=== PATIENT | male | born 1985 | race Caucasian/White ===

== ENCOUNTER 2022-02-28 16:38 | Outpatient (CLI) | payer OTHER, SELFPAY ==
[2022-02-28 13:26] LABS: Cholesterol* 163 mg/dL (90-199)
[2022-02-28 13:27] LABS: HDL Cholesterol* 45 mg/dL (>=40); LDL Cholesterol Calculated 97 mg/dL (<100); Triglycerides* 104 mg/dL (40-149)
[2022-02-28 22:43] LABS: Glucose* 112 mg/dL (60-115)
== END 2022-02-28 16:39 | disposition home or self-care (01) ==
PROVIDERS: PCP Emergency Medicine; Visit Provider Emergency Medicine
DX: Z13.1 Encounter for screening for diabetes mellitus (principal); Z13.6 Encounter for screening for cardiovascular disorders
CPT/HCPCS: 80061; 82947

== ENCOUNTER 2022-09-25 14:18 | Outpatient (CLI) | payer OTHER, SELFPAY | END 2022-09-25 14:19 | disposition home or self-care (01) | LOC: LKVREF 14:19 | PROVIDERS: PCP Emergency Medicine; Visit Provider Emergency Medicine | DX: E66.9 Obesity, unspecified (principal); R73.01 Impaired fasting glucose; E11.9 Type 2 diabetes mellitus without complications; Z13.6 Encounter for screening for cardiovascular disorders; Z13.1 Encounter for screening for diabetes mellitus | CPT/HCPCS: 80076 ==

== ENCOUNTER 2022-10-23 08:23 | Outpatient (CLI) | payer OTHER, SELFPAY | END 2022-10-23 08:24 | disposition home or self-care (01) | PROVIDERS: PCP Emergency Medicine; Visit Provider Emergency Medicine | DX: E66.9 Obesity, unspecified (principal); R73.01 Impaired fasting glucose; E11.9 Type 2 diabetes mellitus without complications; Z13.6 Encounter for screening for cardiovascular disorders; Z13.1 Encounter for screening for diabetes mellitus | CPT/HCPCS: 80061; 82043; 82570; 84443 ==

== ENCOUNTER 2022-12-16 18:40 | Outpatient (CLI) | payer OTHER, SELFPAY | END 2022-12-16 18:41 | disposition home or self-care (01) | LOC: LKVREF 18:40 | PROVIDERS: PCP Emergency Medicine; Visit Provider Emergency Medicine | DX: E11.9 Type 2 diabetes mellitus without complications (principal); E66.9 Obesity, unspecified; Z71.3 Dietary counseling and surveillance | CPT/HCPCS: 82565 ==

== ENCOUNTER 2023-05-21 09:35 | Outpatient (CLI) | payer OTHER, SELFPAY ==
--- OUTSIDE RECORDS SUMMARY | 2023-05-21 09:38 | XMS_ITS | Continuity of Care Document ---
Author Name Unknown Organization [facility] Address [address] [place] [address] Phone Care Team Providers Care Automobile Upholstery Trim Installer Name Role Phone Yves Delgado MD Unavailable Unavailable Allergies, Adverse Reactions, Alerts Substance Reaction Status Criticality No Known Allergies Active No Inform ation Medications Medication Instructions Dosage Effective Dates (start - stop) Status Comments GABAPENTIN (unknown strength) Not Available - Active Procedures Procedure Date Office/Outpatient Visit,[facility] 2021 Advance Directives Directive Yes / No Effective Date File Name No Information Encounters Encounter Description Practice Location Reason(s) For Visit Diagnoses Date Provider Providers Copied on Encounter Office/Outpat ient Visit,[facility], [facility], [address], [place], [place], [id number], [place] tel:[phone] [facility] No Information Danny Marinelli. [facility], [address] [place] [address], [facility] [address], [place], [place], [id number], [place]. tel:[phone] Referring Provider: Rustam Mckeon, [facility] [address] [place], [address]. tel:[phone] Family History Family Member Type Diagnosis Age At Onset No Information Payers Payer name Insurance type Covered republican ID Wilfred villalpando(s) [facility] [id number] Social History Type Description Quantity Date Captured Comments Alcohol Use Details Unknown Caffeine Use Details Unknown Tobacco Use Status Current non-smoker Smoking Status Never smoker Non-Smoking Tobacco Use Details : No Details Available : No Details Available Sex Male Vital Signs Date / Time: Height Weight BMI Pulse Rate Blood Pressure Temperature Respiratory Rate Body Surface Area Head Circumference Head Circ. Percentile Wt./Tk. Percentile BMI percentile Pulse Ox Inhaled Ox 3:31 PM 74.00 in 135.171 kg (298.00 lbs) 38.2 6 kg/m eter (2) Chief Complaint And Reason For Visit No Information Reason For Referral Reason For Referral No Information History Of Present Illness Encounter Date Complaint History Of Prese nt Illness No Information Functional Status Date Functional Assessmen t No Information Instructions Date Instruction Additional Infor mation No Information Assessments Type Assessment Date No Information Patient Care Teams Name Effective Dates (start - stop) Status Members No Information
== END 2023-05-21 09:36 | disposition home or self-care (01) ==
PROVIDERS: PCP Emergency Medicine; Visit Provider Emergency Medicine
DX: E78.5 Hyperlipidemia, unspecified (principal); E11.9 Type 2 diabetes mellitus without complications
CPT/HCPCS: 80053; 80061

== ENCOUNTER 2023-09-24 08:08 | Outpatient (CLI) | payer OTHER, SELFPAY | END 2023-09-24 08:09 | disposition home or self-care (01) | LOC: NFLDREF 09-25 06:15 | PROVIDERS: PCP Emergency Medicine; Referring Provider Emergency Medicine; Visit Provider Emergency Medicine | DX: E78.2 Mixed hyperlipidemia (principal) | CPT/HCPCS: 80061 ==

== ENCOUNTER 2024-04-06 08:24 | Outpatient (CLI) | payer OTHER, SELFPAY ==
--- OUTSIDE RECORDS SUMMARY | 2024-04-07 08:33 | XMS_ITS | Continuity of Care Document ---
Author Organization [facility] Address [address] [place] [address] Phone Care Team Providers Care Buffing Line Set Up Worker Name Role Phone Yves Delgado MD Unavailable Unavailable Allergies, Adverse Reactions, Alerts Substance Reaction Status Criticality No Known Allergies Active No Inform ation Medications Medication Instructions Dosage Effective Dates (start - stop) Status Comments GABAPENTIN (unknown strength) Not Available - Active Procedures Procedure Date Office/Outpatient Visit,[facility] 2021 Advance Directives Directive Yes / No Effective Date File Name No Information Encounters Encounter Description Practice Location Reason(s) For Visit Diagnoses Date Provider Providers Copied on Encounter Office/Outpat ient Visit,[facility], [facility], [address], [place], [place], [id number], [place] tel:[phone] [facility] No Information Danny Marinelli. [facility], [address], [facility] [address], [place], [place], [id number], [place]. tel:[phone] Referring Provider: Rustam Mckeon, [facility] [address] [place], [address]. tel:[phone] Family History Family Member Type Diagnosis Age At Onset No Information Payers Payer name Insurance type Covered constitution party ID Wilfred villalpando(s) [facility] [id number] Social History Type Description Quantity Date Captured [...]
--- OUTSIDE RECORDS SUMMARY | 2024-04-07 08:33 | XMS_ITS | Clinical Summary ---
Author Organization [employer] [facility] Address [place], [place] [address] Care Team Providers Care Youth Leader Name Role Phone Rustam Crabtree MD Primary Care Provider Allergies No known active allergies Medications Medication Sig Dispensed Refills Start Date End Date Status gabapentin (NEURONTIN) 300 mg capsuleIndications:Michelle mbar radiculopathy Take 1-2 Capsules (300-600 mg) by mouth 3 times daily. 180 Capsule 1 07/18/2021 Active diclofenac (VOLTAREN) 75 mg delayed-release tabletIndications:Lum bar radiculopathy Take 1 Tablet (75 mg) by mouth 2 times daily with meals. 60 Tablet 07/18/2021 Active Active Problems Problem Noted Date Diagnosed Date Obesity, unspecified 10/16/2017 Microscopic hematuria 10/24/2014 Immunizations Name Administration Dates Next Due DTP 04/13/1990, 8,03/25/1988, 988 DTaP 03/18/1995 HIB PRP-T (ActHIB,Hiberix) 07/27/1989 Hepatitis B (Peds) 12/29/2000,04/13/2000, 000 Influenza, Injectable, Mdck, Quadrivalent, W/preservative 03/28/2021 MMR 12/29/2000,03/17/1989 Oral Polio Vaccine 04/13/1990,03/25/1988, 988 Td (Age >=7 Years) 02/17/2000 Tdap 06/09/2011 Social History Tobacco Use Types Packs/Day Years Used Date Smoking Tobacco: Never Smokeless Tobacco: Never Alcohol Use Standard Drinks/Week Comments Yes 0 (1 standard drink = 0.6 oz pur e alcohol) rarely 1-2 weekly PHQ-2 Answer Date Recorded PHQ-2 TOTAL SCORE 2 02/14/2021 Social Connections Answer Date Recorded Frequency of Communication with Friends and Fami ly Not on file 07/18/2021 Financial Resource Strain Answer Date R ecorded Difficulty of Paying Living Expenses Not on file 07/18/2021 Difficulty of Paying Living Expenses Not on file 07/18/2021 Sex and Gender Information Value Date Recorded Sex Assigned at Not on file Gender Identity Not on file Sexual Orientation Not on file Obstetrics History Last Filed Vital Signs Vital Sign Reading Time Taken Comments Blood Pressure 110/78 08/29/2021 10:02 AM ASSISTANT STORE LEADER Pulse 81 08/29/2021 10:02 AM ASSISTANT STORE LEADER Temperature 36.2 ??C (97.2 ??F) 07/26/2021 6:57 AM CS T Respiratory Rate 14 08/29/2021 10:02 AM ASSISTANT STORE LEADER Oxygen Saturation 96% 08/29/2021 10:02 AM ASSISTANT STORE LEADER Inhaled Oxygen Concentration - - Weight 129.3 kg (285 lb) 08/29/2021 10:02 AM ASSISTANT STORE LEADER Height 188 cm (6' 2) 02/14/2021 10:29 AM CDT Body Mass Index 36.59 02/14/2021 10:29 AM CDT Plan of Treatment Health Maintenance Due Date Last Done Comments HIV for age 15-65 11/18/2002 Hepatitis C screening for ag e 18-79 11/18/2005 Tetanus booster 06/09/2021 06/09/2011, 02/17/2000 BMI (ht and wt on same day) for age 18+ 02/14/2022 02/14/2021 Depression screening for age 12+ 02/14/2022 02/14/2021, 02/14/2021 Lipids for age 35-44 11/18/2022 COVID-19 vaccine series ( season) 2024 05/17/2021, 10/11/2020 Influenza for age 9-49 03/06/2024 03/28/2021 Tdap Completed 06/09/2011 Pneumococcal series for age 6-64 Aged Out No longer eligible b ased on patient's age to complete this topic Care Teams Youth Leader Relationship Specialty [place] [address] [place] [address] PCP - General Family Practice 02/13/21
--- OUTSIDE RECORDS SUMMARY | 2024-04-07 08:33 | XMS_ITS | Referral Summary ---
Author Organization [facility] Address [address] [place] [address] Care Team Providers Care Assistant Manager/Embalmer Name Role Phone No Ref-Primary, Physician Primary Care Provider Allergies No known active allergies Medications Medication Sig Dispensed Refills Start Date End Date Status ondansetron (ZOFRAN ODT) 4 MG ODT tab Take 1 tablet (4 mg) by mouth every 8 hours as needed for nausea 10 tablet 10/25/2021 Active Social History Tobacco Use Types Packs/Day Years Used Date Smoking Tobacco: Passive Smo ke Exposure - Never Smoker Cigarettes Alcohol Use Standard Drinks/Week Comments Yes 0 (1 standard drink = 0.6 oz pur e alcohol) Adolescent Education Answer Date Record ed Getting School Help Needed Not on file 04/12 Sex and Gender Information Value Date Recorded Sex Assigned at Not on file Gender Identity Not on file Sexual Orientation Not on file Last Filed Vital Signs Vital Sign Reading Time Taken Comments Blood Pressure 114/65 10/25/2021 6:45 PM CDT Pulse 89 10/25/2021 6:45 PM CDT Temperature 37.9 ??C (100.3 ??F) 10/25/2021 2:59 PM C DT Respiratory Rate 18 10/25/2021 6:45 PM CDT Oxygen Saturation 96% 10/25/2021 6:45 PM CDT Inhaled Oxygen Concentration - - Weight 131.5 kg (290 lb) 10/25/2021 2:59 PM CDT Height 190.5 cm (6' 3) 10/25/2021 2:59 PM CDT Body Mass Index 36.25 10/25/2021 2:59 PM CDT Plan of Treatment Not on file Procedures Procedure Name Priority Date/Time Associated Diagnosis Comments COMPREHENSIVE METABOLIC PANEL STAT 10/25/2021 3:34 PM CDT from Last 3 Months or Most Recently Relevant to Health Maintenance Results * (ABNORMAL) Comprehensive metabolic panel (10/25/2021 3:34 PM CDT) Sodium 134 133 - 144 mmol/L 10/25/2021 4:08 PM CDT [facility] Potassium 3.5 3.4 - 5.3 mmol/L 10/25/2021 4:08 PM CDT [facility] Chloride 103 94 - 109 mmol/L 10/25/2021 4:08 PM CDT [facility] Carbon Dioxide (CO2) 25 20 - 32 mmol/L 10/25/2021 4:08 PM CDT [facility] Anion Gap 6 3 - 14 mmol/L 10/25/2021 4:08 PM CDT [facility] Urea Nitrogen 12 7 - 30 mg/dL 10/25/2021 4:08 PM CDT [facility] Creatinine 0.77 0.66 - 1.25 mg/dL 10/25/2021 4:08 PM CDT [facility] Calcium 9.1 8.5 - 10.1 mg/dL 10/25/2021 4:08 PM CDT [facility] Glucose 136(H) 70 - 99 mg/dL 10/25/2021 4:08 PM CDT [facility] Alkaline Phosphatase 61 40 - 150 U/L 10/25/2021 4:08 PM CDT [facility] AST 17 0 - 45 U/L 10/25/2021 4:08 PM CDT [facility] ALT 40 0 - 70 U/L 10/25/2021 4:08 PM CDT [facility] Protein Total 8.2 6.8 - 8.8 g/dL 10/25/2021 4:08 PM CDT [facility] Albumin 4.1 3.4 - 5.0 g/dL 10/25/2021 4:08 PM CDT [facility] Bilirubin Total 2.4(H) 0.2 - 1.3 mg/dL 10/25/2021 4:08 PM CDT [facility] GFR Estimate >90 >60 mL/min/1.7 3m2 10/25/2021 4:08 PM CDT [facility] Comment:Effective June 062020 eGFRcr in adults is calculated using the 2020 CKD-EPI creatinine equation which includes age and gender (Kathia et al., NEJM, DOI: 10.1056/IHJHxq4912069) Blood STRUCTURE OF RIGHT UPPER LIMB / Unknown Venipuncture / Unknown 10/25/2021 3:34 PM CDT 10/25/2021 3:37 PM CDT Nixon Dailey MD LAB - BLOOD ORD ERABLES [facility] Acute Care Lab [address] Lab (1st floor, no room number) [place] [address], [facility] [phone] from Last 3 Months or Most Recently Relevant to Health Maintenance Care Teams Assistant Manager/Embalmer Relationship Specialty Start Date End Date No Ref-Primary, Physician PCP - General 08/28/22
--- OUTSIDE RECORDS SUMMARY | 2024-04-07 08:33 | XMS_ITS | Clinical Summary ---
Author Organization [facility] Address [address] [place] [address] Care Team Providers Care Proof Technician Name Role Phone No Ref-Primary, Physician Primary [...] 10/25/2021 2:59 PM CDT Plan of Treatment Health Maintenance Due Date Last Done Comments ADVANCE CARE PLANNING 1987 ANNUAL REVIEW OF HM ORDERS 1987 YEARLY PREVENTIVE VISIT 1987 HIV SCREENING 11/18/2002 HEPATITIS C SCREENING 11/18/2005 PHQ-2 (once per calendar year) 2023 COVID-19 Vaccine (3 - season) 2024 05/17/2021, 10/11/2020 INFLUENZA VACCINE (#1) 2024 03/28/2021 GLUCOSE 10/25/2024 10/25/2021 DTAP/TDAP/TD IMMUNIZATION (8 - Td or Tdap) 02/21/2032 02/20/2022, 06/09/2011, 02/17/2000, Additional history exists HEPATITIS B IMMUNIZATION Completed 001, 04/13/2000, 02/17/2000 HPV IMMUNIZATION Aged Out No longer e ligible based on patient's age to complete this topic MENINGITIS IMMUNIZATION Aged Out No l onger eligible based on patient's age to complete this topic Pneumococcal Vaccine: Pediatrics (0 to 5 Years) and At-Risk Patients (6 to 64 Years) Aged Out No longer eligible based on patient's age to complete this topic RSV MONOCLONAL ANTIBODY Aged Out No l onger eligible based on patient's age to complete this topic Procedures Procedure Name Priority Date/Time Associated Diagnosis [...] includes age and gender (Kathia et al., NEJ, DOI: 10.1056/[id number]) Blood STRUCTURE OF RIGHT UPPER LIMB / Unknown Venipuncture / Unknown 10/25/2021 3:34 PM CDT 10/25/2021 3:37 PM CDT Nixon Dailey MD LAB - BLOOD ORD ERABLES [facility]AT[facility] Acute Care Lab [address] Lab (1st floor, no room number) [place] [address], [facility] [phone] from Last 3 Months or Most Recently Relevant to Health Maintenance Care Teams Proof Technician Relationship Specialty Start Date End Date No Ref-Primary, Physician PCP - General 08/28/22
--- OUTSIDE RECORDS SUMMARY | 2024-04-07 08:33 | XMS_ITS | Continuity of Care Document ---
Author Organization [facility] Address [address] [place] [address] Phone Care Team Providers Care Claims Associate Name Role Phone Will Greg BOBBY Unavailable Unavailabl e Medications Medication Instructions Dosage Effective Dates (start - stop) Status Comments Medrol (Derek) 4 mg tablets in a dose pack take by Oral route as directed on pack Not Available - Active Procedures Procedure Date Drug Urine Toxology With Chromatography DAST 15-30 MIN OFFICE/OUTPATIENT VISIT, [facility] Advance Directives Directive Yes / No Effective Date File Name No Information Encounters Encounter Description Practice Location Reason(s) For Visit Diagnoses Date Provider Providers Copied on Encounter [facility], [address] [place] [address], [id number] , [place] tel: [phone] [facility] No Information 2 Donny Garza. [address] [facility] [place], [place], [id number] , [place]. tel: [phone] [facility], [address] [place] [address] [place], [place], [id number] , [place] tel: [phone] [facility] [place] Other intervertebral disc degeneration, lumbar region 1 Samantha Syed. [address], [place], [id number] , [place]. tel: [phone] [facility], [address] [place], [id number] , [place] tel:[phone] [facility] [place] No Information 1 Samantha Syed. [address] [facility] [address], [place], [id number] , [place]. tel:[phone] Referring Provider: Greg Bray, [address] [facility] [place], [address] . tel:[phone] OFFICE/OUTPAT IENT VISIT, [facility], [address] [place] [address] [place], [id number] , [place] tel:[phone] [facility] [place] Low back pain (chief complaint) Chronic pain syndromeEncounter for screening for other disorderOther intervertebral disc degeneration, lumbar region 1 Samantha Syed. [address] [facility] [address], [place], [id number] , [place]. tel:[phone] Referring Provider: Greg Bray, [address] [facility] [place], [address] . tel:[phone] Family History Family Member Type Diagnosis Age At Onset Father Problem ruptured disc Payers Payer name Insurance type Covered alliance party ID Wilfred villalpando(s) [employer] CI [id number] Social History Type Description Quantity Date Captured Comments Sex Male Smoking Status No Information Chief Complaint And Reason For Visit No Information Reason For Referral Reason For Referral No Information Plan Of Treatment Date Type Action Status Goal PHQ-9. Due on du e Goal Medication Reconciliation. D ue on due Goal Weight. Due on d ue Goal Height. Due on d ue Goal Tobacco Use. Due on 021 due Goal Review Allergy List. Due on [...] Of Prese nt Illness Low back pain (comments) John is here for an initial consult and presents with low back pain without leg pain, initial onset 6-7 years ago, possible injury. He re-injured it about 6 weeks ago which has aggravated the pain and limits his activity level. Bending down and sitting aggravates the pain. Lying down supine relieves the pain. He sought complex care nurse practitioner with minimal relief. X-ray and MRI last fall at [facility] which showed spinal stenosis and herniated disc per pt report. Pt used to have radiculopathy s/s but now pain is mainly axialHe is self referred.Treatment [facility] - not helpful.metaxalone, ibuprofenPt goal: [facility] to take over pain management. Low back pain Severity level i s 8. Duration: chronic. It occurs persistently. Location of pain is lower back.The patient describes the pain as an ache and stabbing. Symptoms are aggravated by ascending stairs, bending, changing positions, descending stairs, lifting, running, sitting, standing, walking and housework. Symptoms are relieved by heat, ice, lying down, massage and chiropractic. Functional Status Date Functional Assessmen t No Information Instructions Date Instruction Additional Infor mation No Information Assessments Type Assessment Date No Information Patient Care Teams Name Effective Dates (start - stop) Status Members No Information
== END 2024-04-06 08:25 | disposition home or self-care (01) ==
LOC: NFLDREF 04-07 08:31
PROVIDERS: PCP Emergency Medicine; Referring Provider Emergency Medicine; Visit Provider Emergency Medicine
DX: E78.2 Mixed hyperlipidemia (principal); I10 Essential (primary) hypertension; E11.9 Type 2 diabetes mellitus without complications; E66.9 Obesity, unspecified; R73.01 Impaired fasting glucose; Z13.6 Encounter for screening for cardiovascular disorders; Z13.1 Encounter for screening for diabetes mellitus
CPT/HCPCS: 80048; 80061; 82043; 82570

== ENCOUNTER 2024-12-18 05:24 | Emergency (ER) | payer OTHER, SELFPAY ==
--- OUTSIDE RECORDS SUMMARY | 2021-08-22 11:07 | XMS_ITS | Continuity of Care Document ---
Author Organization [facility] Address [address] [facility] [place] [address] Phone Care Team Providers Care Fabric Cutter Name Role Phone Will Greg BOBBY Unavailable Unavailabl e Medications Medication Instructions Dosage Effective Dates (start - stop) Status Comments Medrol (Derek) 4 mg tablets in a dose pack take by Oral route as directed on pack Not Available - Active Procedures Procedure Date Drug Urine Toxology With Chromatography DAST 15-30 MIN OFFICE/OUTPATIENT VISIT, [facility] Advance Directives Directive Yes / No Effective Date File Name No Information Encounters Encounter Description Practice Location Reason(s) For Visit Diagnoses Date Provider Providers Copied on Encounter [facility], [address] [place] [address], [id number] , [place] tel: [phone] [facility] No Information 2 Donny Garza. [address] [facility] [place], [place], [id number] , [place]. tel: [phone] [facility], [address] [place] [address] [place], [place], [id number] , [place] tel: [phone] [facility] [place] Other intervertebral disc degeneration, lumbar region 1 Samantha Syed. [address], [place], [id number] , [place]. tel: [phone] [facility], [address] [place], [id number] , [place] tel:[phone] [facility] [place] No Information 1 Samantha Syed. [address] [facility] [address], [place], [id number] , [place]. tel:[phone] Referring Provider: Greg Bray, [address] [facility] [place], [address] . tel:[phone] OFFICE/OUTPAT IENT VISIT, [facility], [address] [place] [address] [place], [id number] , [place] tel:[phone] [facility] [place] Low back pain (chief complaint) Chronic pain syndromeEncounter for screening for other disorderOther intervertebral disc degeneration, lumbar region 1 Samantha Syed. [address] [facility] [address], [place], [id number] , [place]. tel:[phone] Referring Provider: Greg Bray, [address] [facility] [place], [address] . tel:[phone] Family History Family Member Type Diagnosis Age At Onset Father Problem ruptured disc Payers Payer name Insurance type Covered green party ID Wilfred villalpando(s) [employer] CI [id number] Social History Type Description Quantity Date Captured Comments Sex Male Smoking Status No Information Chief Complaint And Reason For Visit No Information Reason For Referral Reason For Referral No Information Plan Of Treatment Date Type Action Status Goal Height. Due on d ue Goal Medication Reconciliation. D ue on due Goal Tobacco Use. Due on 021 due Goal Weight. Due on d ue Goal Update Social History. Due o n due Goal PHQ-9. Due on du e Goal Review Allergy List. Due on due Goal Update Social History. Due o n due Goal Weight. Due on d ue Goal Height. Due on d ue Goal Tobacco Use. Due on due Goal PHQ-9. Due on du e Goal Medication Reconciliation. D ue on due Goal Review Allergy List. Due on due Goal PHQ-9. Due on du e Goal Medication Reconciliation. D ue on due Goal Weight. Due on d ue Goal Height. Due on d ue Goal Tobacco Use. Due on due Goal Review Allergy List. Due on due Goal Update Social History. Due o n due History Of Present Illness Encounter Date Complaint History Of Prese nt Illness Low back pain Severity level i s 8. Duration: chronic. It occurs persistently. Location of pain is lower back.The patient describes the pain as an ache and stabbing. Symptoms are aggravated by ascending stairs, bending, changing positions, descending stairs, lifting, running, sitting, standing, walking and housework. Symptoms are relieved by heat, ice, lying down, massage and chiropractic. Low back pain (comments) John is here for an initial consult and presents with low back pain without leg pain, initial onset 6-7 years ago, possible injury. He re-injured it about 6 weeks ago which has aggravated the pain and limits his activity level. Bending down and sitting aggravates the pain. Lying down supine relieves the pain. He sought veterinarian laboratory animal care with minimal relief. X-ray and MRI last fall at [facility] which showed spinal stenosis and herniated disc per pt report. Pt used to have radiculopathy s/s but now pain is mainly axialHe is self referred.[facility] helpful.metaxalone, ibuprofenPt goal: [facility] to take over pain management. Functional Status Date Functional Assessmen t No Information Instructions Date Instruction Additional Infor mation No Information Assessments Type Assessment Date No Information Patient Care Teams Name Effective Dates (start - stop) Status Members No Information
--- OUTSIDE RECORDS SUMMARY | 2021-08-22 11:07 | XMS_ITS | Continuity of Care Document ---
Author Organization [facility] Address [address] [facility] [place] [address] Phone Care Team Providers Care Lighting Specialist Name Role Phone Will Greg BOBBY Unavailable Unavailabl e Medications Medication Instructions Dosage Effective Dates (start - stop) Status Comments Medrol (Derek) 4 mg tablets in a dose pack take by Oral route as directed on pack Not Available - Active Procedures Procedure Date Drug Urine Toxology With Chromatography DAST 15-30 MIN OFFICE/OUTPATIENT VISIT, [facility] Advance Directives Directive Yes / No Effective Date File Name No Information Encounters Encounter Description Practice Location Reason(s) For Visit Diagnoses Date Provider Providers Copied on Encounter [facility], [address] [place] [address], [id number] , [place] tel: [phone] [facility] No Information 2 Donny Garza. [address] [facility] [place], [place], [id number] , [place]. tel: [phone] [facility], [address] [place] [address] [place], [place], [id number] , [place] tel: [phone] [facility] [place] Other intervertebral disc degeneration, lumbar region 1 Samantha Syed. [address] [facility] [address], [place], [id number] , [place]. tel: [phone] [facility], [address] [place], [id number] , [place] tel:[phone] [facility] [place] No Information 1 Samantha Syed. [address] [facility] [address], [place], [id number] , [place]. tel:[phone] Referring Provider: Greg Bray, [address] [facility] [place], [address] . tel:[phone] OFFICE/OUTPAT IENT VISIT, [facility], [address] [place] [address] [place], [id number] , [place] tel:[phone] [facility] [place] Low back pain (chief complaint) Chronic pain syndromeEncounter for screening for other disorderOther intervertebral disc degeneration, lumbar region 1 Samantha Syed. [address] [facility] [address], [place], [id number] , [place]. tel:[phone] Referring Provider: Greg Bray, [address] [facility] [place], [address] . tel:[phone] Family History Family Member Type Diagnosis Age At Onset Father Problem ruptured disc Payers Payer name Insurance type Covered constitution party ID Wilfred villalpando(s) [employer] CI [id number] Social History Type Description Quantity Date Captured Comments Sex Male Smoking Status No Information Chief Complaint And Reason For Visit No Information Reason For Referral Reason For Referral No Information Plan Of Treatment Date Type Action Status Goal Review Allergy List. Due on due Goal PHQ-9. Due on du e Goal Update Social History. Due o n due Goal Weight. Due on d ue Goal Tobacco Use. Due on 021 due Goal Medication Reconciliation. D ue on due Goal Height. Due on d ue Goal Review Allergy List. Due on due Goal Medication Reconciliation. D ue on due Goal PHQ-9. Due on du e Goal Tobacco Use. Due on due Goal Height. Due on d ue Goal Weight. Due on d ue Goal Update Social History. Due o n due Goal Update Social History. Due o n due Goal Review Allergy List. Due on due Goal Tobacco Use. Due on due Goal Height. Due on d ue Goal Weight. Due on d ue Goal Medication Reconciliation. D ue on due Goal PHQ-9. Due on du e History Of Present Illness Encounter Date Complaint [...] down supine relieves the pain. He sought family day care worker with minimal relief. X-ray and MRI last fall at [facility] which showed spinal stenosis and herniated disc per pt report. Pt used to have radiculopathy s/s but now pain is mainly axialHe is self referred.[facility].metaxalone, ibuprofenPt goal: [facility] to take over pain management. Functional Status Date Functional Assessmen t No Information Instructions Date Instruction Additional Infor mation No Information Assessments Type Assessment Date No Information Patient Care Teams Name Effective Dates (start - stop) Status Members No Information
[2024-12-18] VITALS (20 sets, daily range): BP systolic 99–139; BP diastolic 54–94; PULSE 60–89; RESP 12–20; TEMP 36.1; O2SAT 92–97; BMI 33.4
--- OUTSIDE RECORDS SUMMARY | 2024-12-18 05:27 | XMS_ITS | Clinical Summary ---
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 Gender Identity Not on file Sexual Orientation Not on file Last Filed Vital Signs Vital Sign Reading Time Taken Comments Blood Pressure 114/65 10/25/2021 6:45 PM CDT Pulse 89 10/25/2021 6:45 PM CDT Temperature 37.9 C (100.3 F) 10/25/2021 2:59 PM CDT Respiratory Rate 18 10/25/2021 6:45 PM CDT [...] OF HM ORDERS 1987 YEARLY PREVENTIVE VISIT 11/18/1990 HIV SCREENING 11/18/2002 HEPATITIS C SCREENING 11/18/2005 COVID-19 VACCINE ( season) 2024 05/17/2021, 10/11/2020 PHQ-2 (once per calendar year) 2024 DIABETES SCREENING 10/25/2024 10/25/2021 INFLUENZA VACCINE (Season Ended) 2025 03/28/2021 DTAP/TDAP/TD VACCINE (8 - Td or Tdap) 02/21/2032 02/20/2022, 06/09/2011, 02/17/2000, Additional history exists ZOSTER VACCINE (1 of 2) 11/18/2037 HEPATITIS B VACCINE Completed 12/29/2000, 04/13/2000, 02/17/2000 HPV VACCINE Aged Out No longer eligi ble based on patient's age to complete this topic MENINGITIS VACCINE Aged Out No longer eligible based on patient's age to complete this topic PNEUMOCOCCAL VACCINE: PEDIATRICS (0 to 5 YEARS) AND AT-RISK PATIENTS (6 to 49 YEARS) Aged Out No longer eligible based on [...] - 70 U/L 10/25/2021 4:08 PM CDT LABORATORY Protein Total 8.2 6.8 - 8.8 g/dL 10/25/2021 4:08 PM CDT RH LABORATORY Albumin 4.1 3.4 - 5.0 g/dL 10/25/2021 4:08 PM CDT LABORATORY Bilirubin Total 2.4(H) 0.2 - 1.3 mg/dL 10/25/2021 4:08 PM CDT [facility] LABORATORY GFR Estimate >90 >60 mL/min/1.7 3m2 10/25/2021 4:08 PM CDT LABORATORY Comment:Effective June 062020 eGFRcr in adults is calculated using the 2020 CKD-EPI creatinine equation which includes age and gender (Kathia et al., NEJM, DOI: 10.1056/ELETar9472330) Blood STRUCTURE OF RIGHT UPPER LIMB / Unknown Venipuncture / Unknown 10/25/2021 3:34 PM CDT 10/25/2021 3:37 PM CDT us Nixon Dailey MD LAB - BLOOD ORDERABLES Final Result LABORATORY [facility] [address] Lab (1st floor, no room number) [place] [address], [place] [phone] from Last 3 Months or Most Recently Relevant to Health Maintenance Insurance Back& Care Teams Beater Engineer Helper Relationship Specialty Start Date End Date No Ref-Primary, Physician PCP - General 08/28/22
--- OUTSIDE RECORDS SUMMARY | 2024-12-18 05:27 | XMS_ITS | Clinical Summary ---
Author Organization [facility] Address [address] [place] [address] Care Team Providers Care Vp Scientific Affairs Name Role Phone Pcp, No Primary Care Provider Unavailabl e Allergies No known active allergies Medications gabapentin (NEURONTIN) 300 mg capsuleIndications :Lumbar radiculopathy Take 1-2 Capsules (300-600 mg) by mouth 3 times daily. 180 Capsule 1 2 Active diclofenac (VOLTAREN) 75 mg delayed-release tabletIndications: Lumbar radiculopathy Take 1 Tablet (75 mg) by mouth 2 times daily with meals. 60 Tablet 2 Active Active Problems Problem Noted Date Diagnosed Date Obesity, unspecified 10/16/2017 Microscopic hematuria 10/24/2014 Immunizations Immunization Administration Dates Next Due DTP 04/13/1990, 8,03/25/1988,1987 DTaP 03/18/1995 HIB PRP-T (ActHIB,Hiberix) 07/27/1989 Hepatitis [...] at Not on file Legal Sex Male 9:57 AM CDT Gender Identity Not on file Sexual Orientation Not on file Obstetrics History Last Filed Vital Signs Vital Sign Reading Time Taken Comments Blood Pressure 110/78 08/29/2021 10:02 AM [facility] [employer] [employer] Pulse 81 08/29/2021 10:02 AM [facility] [employer] Temperature 36.2 C (97.2 F) 07/26/2021 6:57 AM [facility] [employer] Respiratory Rate 14 08/29/2021 10:02 AM [facility] [employer] Oxygen Saturation 96% 08/29/2021 10:02 AM [facility] Inhaled Oxygen Concentration - - Weight 129.3 kg (285 lb) 08/29/2021 10:02 AM [facility] [employer] Height 188 cm (6' 2) 02/14/2021 10:29 [...] series ( season) 2024 05/17/2021, 10/11/2020 Influenza Vaccine (Season Ended) 2025 03/28/2021 Hepatitis B series for 19+ Completed 12/29, 04/13/2000, 02/17/2000 Tdap Completed 06/09/2011 Pneumococcal series for age 6-49 Aged Out No longer eligible b ased on patient's age to complete this topic Insurance [place] TONG [id number] Care Teams Vp Scientific Affairs Relationship Specialty Start Date End Date Pcp, No . PCP - General 07/15/24
--- NOTE | 2024-12-18 05:40 | ED.GENADULT ---
HPI - General Adult General Chief complaint: Chest Pain Stated complaint: chest pain Time Seen by Provider: 12/18/24 05:40 History of Present Illness HPI narrative: starting yesterday tightness in center of chest , pain does not radiate, no SOB or nausea, patient denies cardiac hx. patient reports recent monjaro injection 2 days ago and since the injection feeling off, some numbness in arms and this tight feeling in his chest. 39-year-old man presenting to the emergency department with concern chest pain/tightness. Sounds like has been having sensation of tightness for about 12 hours at least. He gestures to his mid chest. Is not feeling shortness of breath. There is no pleuritic nature to this. Did have a Brilliant RO injection 2 days ago in not been feeling right since. Feels this similar sensation in bilateral shoulders and that is arms just feel off. 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 No nausea. Related Data Previous Rx's ?Medication ?Instructions ?Recorded metformin 500 mg tablet,extended 500 mg PO QDAY #90 tabs 04/06/24 release 24 hr rosuvastatin 10 mg tablet 10 mg PO QDAY #90 tabs 10/10/24 fluoxetine 20 mg capsule 40 mg (2 x 20 mg) PO QDAY #180 caps 10/17/24 tirzepatide 10 mg/0.5 mL 10 mg (0.5 mL) subcut QWEEK #2 mL 12/12/24 subcutaneous pen injector Allergies Allergy/AdvReac Type Severity Reaction Status Date / Time ragweed pollen Allergy Intermediate Nasal Verified 08/09/24 08:49 Discharge Review of Systems Status of ROS: Reports: 6 or more systems reviewed and unremarkable except as noted in History and below [facility] Medical History Depression ?F32.A - Depression, unspecified (ICD-10) Insomnia ?G47.00 - Insomnia, unspecified (ICD-10) Low back pain ?M54.50 - Low back pain, unspecified (ICD-10) Hyperlipidemia ?E78.5 - Hyperlipidemia, unspecified (ICD-10) 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) Weight loss counseling, encounter for ?Z71.3 - Dietary counseling and surveillance (ICD-10) Obesity ?E66.9 - Obesity, unspecified (ICD-10) New onset type 2 diabetes mellitus ?E11.9 - Type 2 diabetes mellitus without complications (ICD-10) BMI 37.0-37.9, adult ?Z68.37 - Body mass index [BMI] 37.0-37.9, adult (ICD-10) Elevated fasting glucose ?R73.01 - Impaired fasting glucose (ICD-10) Asymptomatic varicose vein of lower extremity without complication ?I83.90 - Asymptomatic varicose veins of unspecified lower extremity (ICD-10) Screening for hyperlipidemia ?Z13.220 - Encounter for screening for lipoid disorders (ICD-10) Screening for diabetes mellitus ?Z13.1 - Encounter for screening for diabetes mellitus (ICD-10) Chest pain ?R07.9 - Chest pain, unspecified (ICD-10) Family History Uncle Coronary artery disease Mother Hodgkins disease Father Hyperlipidemia Social History Smoking Status: Never smoker Do you use any of these nicotine containing products: None Second hand tobacco smoke exposure: No How often do you have a drink containing alcohol: never AUDIT-C Alcohol total score: 0 Non-prescribed substance use: denies use service: No Exam Narrative: Exam Narrative: Pleasant. NAD. Skin is warm and dry. Hand. Extremities are well perfused without edema. Lungs clear. Heart regular rate and the or gallop. Abdomen is soft and nontender. Moving all extremities without difficulty. No reproducible discomfort palpation the chest Const: Vital Signs, click to edit/add: Vital Signs - 24 hr 12/18/24 05:30 12/18/24 05:38 12/18/24 05:39 Temperature 97 F L Pulse Rate 89 85 Pulse Rate [Pulse Oximeter] 75 Respiratory Rate 16 Blood Pressure 139/77 Blood Pressure [Ri ght Upper Arm] 136/94 H Pulse Oximetry 96 96 96 Oxygen Delivery Me thod Room Air 12/18/24 05:45 12/18/24 05:50 12/18/24 06:00 Temperature Pulse Rate 77 71 Pulse Rate [Pulse Oximeter] Respiratory Rate Blood Pressure Blood Pressure [Ri ght Upper Arm] Pulse Oximetry 96 95 96 Oxygen Delivery Me thod 12/18/24 06:02 12/18/24 06:15 12/18/24 06:30 Temperature Pulse Rate 73 68 68 Pulse Rate [Pulse Oximeter] Respiratory Rate 20 Blood Pressure 125/70 Blood Pressure [Ri ght Upper Arm] Pulse Oximetry 95 94 95 Oxygen Delivery Me thod 12/18/24 06:32 12/18/24 06:33 12/18/24 06:45 Temperature Pulse Rate 66 68 67 Pulse Rate [Pulse Oximeter] Respiratory Rate 13 14 Blood Pressure 123/68 Blood Pressure [Ri ght Upper Arm] Pulse Oximetry 95 95 92 Oxygen Delivery Me thod 12/18/24 07:00 12/18/24 07:04 12/18/24 07:30 Temperature Pulse Rate 64 67 64 Pulse Rate [Pulse Oximeter] Respiratory Rate Blood Pressure 115/74 Blood Pressure [Ri ght Upper Arm] Pulse Oximetry 94 96 95 Oxygen Delivery Me thod 12/18/24 07:32 12/18/24 07:45 12/18/24 08:00 Temperature Pulse Rate 64 60 62 Pulse Rate [Pulse Oximeter] Respiratory Rate 13 Blood Pressure 108/71 Blood Pressure [Ri ght Upper Arm] Pulse Oximetry 94 95 95 Oxygen Delivery Me thod 12/18/24 08:02 12/18/24 08:15 Temperature Pulse Rate 66 66 Pulse Rate [Pulse Oximeter] Respiratory Rate 13 12 Blood Pressure 99/54 L Blood Pressure [Ri ght Upper Arm] Pulse Oximetry 97 95 Oxygen Delivery Me thod Documenting provider has reviewed patient's vital signs: yes Course Vital Signs Vital signs: Initial Vital Signs Temperature 97 F L 12/18/24 05:30 Temperature Source Temporal Artery Scan 12/18/24 05:30 Pulse Rate 75 12/18/24 05:30 Respiratory Rate 16 12/18/24 05:30 Blood Pressure 136/94 H 12/18/24 05:30 Blood Pressure Mean 108 H 12/18/24 05:30 Blood Pressure Position Semi-Fowlers 12/18/24 05:30 Pulse Oximetry 96 12/18/24 05:30 Oxygen Delivery Method Room Air 12/18/24 05:30 Vital Signs Temperature 97 F L 12/18/24 05:30 Pulse Rate 75 12/18/24 05:30 Respiratory Rate 16 12/18/24 05:30 Blood Pressure 136/94 H 12/18/24 05:30 Pulse Oximetry 96 12/18/24 05:30 Oxygen Delivery Method Room Air 12/18/24 05:30 Temperature 97 F L 12/18/24 05:30 Pulse Rate 66 12/18/24 08:15 Respiratory Rate 12 12/18/24 08:15 Blood Pressure 99/54 L 12/18/24 08:02 Pulse Oximetry 95 12/18/24 08:15 Oxygen Delivery Method Room Air 12/18/24 05:30 Medical Decision Making MDM Narrative Medical decision making narrative: I think with the vagueness of his symptoms mind be a number of issues. Certain might be cardiac ischemia. Does not have any respiratory symptoms to suggest infectious etiology. Might be related to recent physical work but I would be more comfortable with this diagnosis if I could reproduce the symptoms on physical exam. Could be stress related as well. Could be related to recent new medication. Initial EKG independently reviewed by me with rate of 82. No Q-waves. No ischemic changes otherwise. Labs in general are reassuring including cardiac labs with normal 2 hour troponins. Approximately 2 hours later EKG looks to be unchanged my independent review. Rate of 64. Normal sinus. Otherwise well with stable vitals. See patient discharge plan for further discussion I am afraid I can not tell you what exactly is causing your chest symptoms. Your evaluation though has been reassuring. Certainly does not look like there has been any injury to your heart. I would rest today. Might take some ibuprofen or acetaminophen. Hydrate. Return for intensifying symptoms particularly accompanied by lightheadedness or shortness of breath. Please follow-up with your primary care provider next week if the symptoms are continuing. Medical Records Medical records reviewed: Yes I reviewed the patient's medical records Lab Data Lab results reviewed: Yes I reviewed the patient's lab results Labs: Lab Results 12/18/24 12/18/24 12/18/24 Range/Units 05:35 05:50 07:16 WBC 7.29 (4.50-11.00) K/uL RBC 5.16 (4.30-5.90) m/uL Hgb 15.9 (13.5-17.5) gm/dL Hct 46.0 (37.0-53.0) % MCV 89 (80-100) fL MCH 31 (26-34) pg MCHC 35 (32-36) gm/dL RDW Coeff of Darleen 12.3 (11.5-15.5) % Plt Count 277 (140-440) K/uL Neut % (Auto) 60.2 (42.0-72.0) % Lymph % (Auto) 29.6 (20-44) % Harlan % (Auto) 7.8 (0.0-11.0) % Eos % (Auto) 1.8 (0.0-7.0) % Baso % (Auto) 0.3 (0.0-3.0) % Neut # (Auto) 4.39 (1.7-7.0) K/uL Lymph # (Auto) 2.16 (0.90-2.90) K/uL Harlan # (Auto) 0.60 (0.00-0.90) K/UL Eos # (Auto) 0.13 (0.00-0.50) K/uL Baso # (Auto) 0.02 (0.00-0.30) K/uL Abs Immat Gran (auto) 0.02 (0.00-0.30) K/uL Imm/Tot Granulo (auto) 0.3 % Sodium 140 (135-149) mmol/L Potassium 3.9 (3.6-5.1) mmol/L Chloride 104 (96-114) mmol/L Carbon Dioxide 27 (20-32) mmol/L Anion Gap 9 (7-15) mEq/L BUN 14 (5-24) mg/dL Creatinine 0.8 (0.5-1.5) mg/dL Estimated Creat Clear 146.99 Estimated GFR 117 ml/min Glucose 109 (60-115) mg/dL Calcium 9.3 (8.4-10.6) mg/dL Total Bilirubin 1.7 H (0.1-1.5) mg/dL Direct Bilirubin 0.0 (0.0-0.5) mg/dL AST 25 (12-35) U/L ALT 29 (4-50) U/L Alkaline Phosphatase 73 (40-150) U/L Troponin I < 0.01 (0.01-0.04) ng/mL C-Reactive Protein < 0.5 L (0.5-1.0) mg/dL NT-Pro-B Natriuret Pep < 20 (See Note) pg/mL Total Protein 7.5 (6.0-8.3) g/dL Albumin 4.6 (3.3-5.0) g/dL POC Troponin I 0.00 L 0.00 L (0.01-0.04) ng/ml Discharge Plan Discharge Clinical Impression: Chest tightness, Malaise Patient Disposition: Home, Self-Care Condition: Stable Additional Instructions: I am afraid I can not tell you what exactly is causing your chest symptoms. Your evaluation though has been reassuring. Certainly does not look like there has been any injury to your heart. I would rest today. Might take some ibuprofen or acetaminophen. Hydrate. Return for intensifying symptoms particularly accompanied by lightheadedness or shortness of breath. Please follow-up with your primary care provider next week if the symptoms are continuing. Prescriptions: No Action metformin 500 mg tablet extended release 24 hr 500 mg PO QDAY Qty: 90 3RF rosuvastatin 10 mg tablet 10 mg PO QDAY Qty: 90 0RF fluoxetine 20 mg capsule 40 mg PO QDAY Qty: 180 0RF Rx Instructions: Take 1 tablet daily for 1 week and then 2 tablets daily tirzepatide 10 mg/0.5 mL pen injector 10 mg subcut QWEEK Qty: 2 0RF Follow Up/Referrals: Leonela Ordonez MD [Primary Care Provider, Family Practice] Stand Alone Forms: MyHealth Info Instructions
[2024-12-18 06:00] LABS: Basophils Absolute Auto 0.02 K/uL (0.00-0.30); Basophils Percent Auto 0.3 % (0.0-3.0); Eosinophils Absolute Auto 0.13 K/uL (0.00-0.50); Eosinophils Percent Auto 1.8 % (0.0-7.0); Hemoglobin* 15.9 gm/dL (13.5-17.5); Immature Granulocytes Abs Auto 0.02 K/uL (0.00-0.30); Immature Granulocytes Pct Auto 0.3 %; Lymphocytes Absolute Auto 2.16 K/uL (0.90-2.90); Lymphocytes Percent Auto 29.6 % (20-44); Mean Corpuscular HGB Conc 35 gm/dL (32-36); Mean Corpuscular Hemoglobin 31 pg (26-34); Mean Corpuscular Volume 89 fL (80-100); Monocytes Percent Auto 7.8 % (0.0-11.0); Neutrophils Absolute Auto 4.39 K/uL (1.7-7.0); Neutrophils Percent Auto 60.2 % (42.0-72.0); Platelet Count* 277 K/uL (140-440); RDW Coefficient of Variation % 12.3 % (11.5-15.5); Red Blood Count 5.16 m/uL (4.30-5.90); White Blood Count* 7.29 K/uL (4.50-11.00)
[2024-12-18 06:03] LABS: Slide Review Reflex No
[2024-12-18 06:13] LABS: Albumin* 4.6 g/dL (3.3-5.0); Chloride* 104 mmol/L (96-114); Potassium* 3.9 mmol/L (3.6-5.1); Sodium* 140 mmol/L (135-149)
[2024-12-18 06:16] LABS: Alanine Aminotransferase* 29 U/L (4-50); Alkaline Phosphatase* 73 U/L (40-150); Anion Gap 9 mEq/L (7-15); Aspartate Amino Transferase* 25 U/L (12-35); Bilirubin Total* 1.7 mg/dL (0.1-1.5); Blood Urea Nitrogen* 14 mg/dL (5-24); Carbon Dioxide* 27 mmol/L (20-32); Creatinine* 0.8 mg/dL (0.5-1.5); Est. Creatinine Clearance* 146.99; Estimated Glomerular Filt Rate 117 ml/min; Total Protein* 7.5 g/dL (6.0-8.3)
[2024-12-18 06:17] LABS: Calcium* 9.3 mg/dL (8.4-10.6); Glucose* 109 mg/dL (60-115)
[2024-12-18 06:21] LABS: C Reactive Protein* < 0.5 mg/dL (0.5-1.0)
[2024-12-18 07:24] LABS: NT Pro B Type NatriureticPept* < 20 pg/mL (See Note); Troponin I* < 0.01 ng/mL (0.01-0.04)
== END 2024-12-18 08:27 | disposition home or self-care (01) ==
PROVIDERS: Emergency Provider Family Medicine; PCP Emergency Medicine
DX: R07.89 Other chest pain (principal); R53.81 Other malaise
CPT/HCPCS: 36415; 80048; 80076; 83880; 84484; 85025; 86140; 93005; 94761; 99284

== ENCOUNTER 2025-01-11 16:17 | Outpatient (CLI) | payer OTHER, SELFPAY | END 2025-01-11 16:18 | disposition home or self-care (01) | LOC: NFLDREF 16:17 | PROVIDERS: PCP Emergency Medicine; Visit Provider Internal Medicine | DX: F32.A Depression, unspecified (principal); Z11.8 Encounter for screening for other infectious and parasitic diseases | CPT/HCPCS: 86618 ==

== ENCOUNTER 2025-03-20 08:45 | Outpatient (CLI) | payer OTHER, SELFPAY | END 2025-03-20 08:46 | disposition home or self-care (01) | LOC: NFLDREF 03-24 03:50 | PROVIDERS: PCP Family Medicine; Referring Provider Family Medicine; Visit Provider Family Medicine | DX: F32.A Depression, unspecified (principal); E78.2 Mixed hyperlipidemia; E66.9 Obesity, unspecified; R07.9 Chest pain, unspecified; R73.01 Impaired fasting glucose; Z13.1 Encounter for screening for diabetes mellitus; Z13.6 Encounter for screening for cardiovascular disorders | CPT/HCPCS: 80053; 80061; 83695; 84403 ==

== ENCOUNTER 2025-07-05 08:58 | Outpatient (CLI) | payer OTHER, SELFPAY | END 2025-07-05 08:59 | disposition home or self-care (01) | LOC: NFLDREF 07-11 19:39 | PROVIDERS: PCP Family Medicine; Referring Provider Family Medicine; Visit Provider Family Medicine | DX: Z00.00 Encounter for general adult medical examination without abnormal findings (principal); E78.2 Mixed hyperlipidemia; Z13.6 Encounter for screening for cardiovascular disorders | CPT/HCPCS: 80053; 80061; 83695 ==